=== PATIENT | female | born 1990 | race Hispanic/Latino ===

== ENCOUNTER 2020-12-10 08:24 | Day surgery (SDC) | payer BC ==
[2020-12-06 16:22] LABS: Absolute Lymphocytes (CBC) 2.2 K/uL (0.7-4.9); Basophils % 0.5 % (0-1.3); Hematocrit 36.7 % (36.0-45.0); MPV 9.3 fL (7.6-11.3); RBC Red Blood Cell Count 3.89 M/uL (3.86-4.86)
[2020-12-06 16:33] LABS: ALT/SGPT 31 U/L (12-78); AST/SGOT 16 U/L (15-37); Albumin 4.1 g/dL (3.4-5.0); Alkaline Phosphatase 96 U/L (45-117); Amylase 50 U/L (25-115); BUN Blood Urea Nitrogen 14 mg/dL (7-18); Bicarbonate 28 mmol/L (21-32); Bilirubin Direct 0.1 mg/dL (0-0.2); Bilirubin Total 0.4 mg/dL (0.2-1.0); Glucose Level 86 mg/dL (74-106); Lipase 90 U/L (73-393); Potassium 3.9 mmol/L (3.5-5.1); Protein, Total 7.8 g/dL (6.4-8.2); Sodium Level 140 mmol/L (136-145)
[2020-12-10 08:57] LABS: Specific Gravity >= 1.030 (1.005-1.030)
[2020-12-10] MEDS ORDERED: propofoL 200 MG/20 ML VIAL IV ONE (09:10)
[2020-12-10] MEDS ORDERED: LIDOCAINE 2% MPF 5 ML VIAL ONE (09:13)
[2020-12-10] MEDS ORDERED: FENTANYL CITR 100 MCG/2 ML ONE (09:13)
[2020-12-10] MEDS ORDERED: GLYCOPYRROLATE 0.2 MG/ML SYR ONE ×2 (09:13→11:20)
[2020-12-10] MEDS ORDERED: MIDAZOLAM HCL 2 MG/2 ML INJ ONE (09:13)
[2020-12-10] MEDS ORDERED: dexAMETHasone 10 MG/ML VIAL ONE (09:13)
[2020-12-10] MEDS ORDERED: ONDANSETRON 4 MG/2 ML VIAL ONE (09:13)
[2020-12-10] MEDS ORDERED: ROCURONIUM 50 MG/5 ML VIAL IV ONE (09:13)
[2020-12-10] MEDS ORDERED: Ringers Lactate 1,000 ML IV ONE ×2 (09:15→11:31)
[2020-12-10] MEDS ORDERED: CEFOXITIN/SWI 1gm 1 GM/10 ML SYR ONE (09:15)
[2020-12-10] MEDS ORDERED: KETOROLAC 30 MG/ML INJ ONE (11:12)
[2020-12-10 11:17] VITALS: O2SAT 100
[2020-12-10] MEDS ORDERED: NEOSTIGMINE 1 MG/ML -5 ML ONE (11:24)
[2020-12-10 13:14] VITALS: BP 102/68
[2020-12-10 13:16] VITALS: TEMP 97.1
--- NOTE | 2020-12-20 11:36 | OP ---
Date of Procedure: 12/10/2020 Surgeon: Rory Monge MD Preoperative Diagnosis: Symptomatic cholelithiasis. Postoperative Diagnosis: Symptomatic cholelithiasis. Procedure: Laparoscopic cholecystectomy. Anesthesia: General plus local. Indications: This is the case of a 30-year-old patient with above diagnosis. Fully explained the be nefits, alternatives, and risks of laparoscopic, possible open cholecystectomy, which include, but no t limited to infection, bleeding, damage to adjacent structures, anesthesia complication, choledochol ithiasis, bile leak, pancreatitis, MO, and even . She also understands this may not relieve any symptoms. She might need more than one surgical intervention. She understood, signed a consent. Procedure In Detail: The patient was brought to the operating room, placed in supine position. Anes thesia was done without complication. Abdominal area was prepped and draped in usual sterile fashion . Marcaine 0.5% was injected for local anesthetic followed by sharp incision of the skin in the infr aumbilical region. Incision was carried down to fascia, which was opened under direct vision. Perit oneum was encountered, opened under direct vision. Vicryl #1 placed inside the fascia. Iliana troca r was carefully introduced. No bleeding was obtained. I placed 3 more trocars, 5 mm each one of the m, 1 in the epigastric and right upper quadrant area under direct visualization. Grasper was placed in the fundus of the gallbladder and another grasper in the infundibulum retracting the gallbladder i n the inferolateral fashion exposing the triangle of Calot and obtaining critical view. The cystic d uct and cystic artery were clearly isolated, freed circumferentially and a connection between those a nd the gallbladder was clearly identified. I proceeded to ligate those by using at least 3 clips pro ximal, 1 clip distal, ligation in middle. Same was done with the cystic artery. No bile leak. No b leeding. The gallbladder was removed from liver using Bovie cauterizer and removed from abdominal ca vity using EndoCatch through the umbilical incision. The area was inspected once again. No bile yvonne k. No bleeding. Clips were intact. At that moment, I proceeded to remove the trocars under direct vision. Deflated pneumoperitoneum. Closed the fascia with #1 Vicryl. Irrigated the subcutaneous ti ssue, closed with 3-0 chromic and then the skin was approximated. Sponge counts and instrument count s were correct. The patient tolerated the procedure well. The patient was sent to recovery in [facility] condition. SUNG/CRISTO Voice ID: [id number] Report ID: [id number]
--- NOTE | 2020-12-20 11:42 | DS ---
Date of Discharge: 12/10/2020 Diagnosis: Symptomatic cholelithiasis. Procedure: Laparoscopic cholecystectomy. Plan: When she gets discharged home, she is going to follow up in my office in 1 week. Call for clara ointment at [phone]. Keep area dry for 48 hours, then may shower. SUNG/CRISTO Voice ID: [id number] Report ID: [id number]
== END 2020-12-10 12:30 | disposition home or self-care (01) ==
LOC: PRE 08:24
PROVIDERS: ATTEND Surgery
PROC: 0FT44ZZ Resection of Gallbladder, Percutaneous Endoscopic Approach (ICD-10-PCS; principal; 2020-12-10 10:30)
DX: K80.10 Calculus of gallbladder with chronic cholecystitis without obstruction (principal); Z20.822 Contact with and (suspected) exposure to COVID-19
CPT/HCPCS: 85025; 80048; 36415; 82150; 81025; 80076; 88304; 83690; 47562; U0002; J2704; J2250; J3010; J1100; J2710; J7120 ×2; J2405